=== PATIENT | female | born 2000 | race Caucasian/White ===

== ENCOUNTER → 2023-08-21 | Outpatient (CLI) | payer SELFPAY ==
[2023-08-21 13:38] LABS: Absolute Lymphocyte Count 1.84 X10^3/uL (0.83-4.51); Absolute Neutrophil Count 5.4 X10^3/uL (2.0-7.7); Basophil# 0.03 X10^3/uL; Basophil% 0.4 % (0-1); Eosinophils% 2.5 % (0-5); Hematocrit 35.2 % (37-47); Hemoglobin 11.9 g/dL (12.0-15.0); Lymphocyte # 1.84 X10^3/ul (0.83-4.51); Lymphocyte % 23.3 % (19-41); Mean Corp Hgb Conc 33.8 g/dL (32-36); Mean Corpuscular Hgb 29.2 pg (27.0-32.0); Mean Corpuscular Volume 86.5 fL (81-99); Monocyte# 0.43 X10^3/uL; Monocyte% 5.4 % (0-10); NRBC Flagged by Analyzer 0 % (0-5); Neutrophil # 5.37 X10^3/uL (2.7-7.7); Neutrophil % 67.9 % (47-70); Platelet Count 226 K/mm3 (150-450); RBC Distribution Width CV 14.7 % (11.6-14.6); RBC Distribution Width SD 46.5 fl (35.1-43.9); Red Blood Count 4.07 M/mm3 (4.2-5.4); White Blood Count 7.9 K/mm3 (4.4-11.0)
[2023-08-21 14:42] LABS: HIV - WCH Non-Reactive (Nonreactive); Hepatitis B Surface Antigen Non-Reactive (Nonreactive); Hepatitis C Antibody Non-Reactive (Nonreactive); Rubella IgG Reactive (Nonreactive); Syphilis Antibodies Non-reactive
[2023-08-25 05:13] LABS: Chlamydia By Nucleic Acid AMP Negative (Negative); Gonococcus By Nucleic Acid AMP Negative (Negative)
[2023-08-28 16:52] LABS: HPV Reflexed? NOT INDICATED
== END | disposition home or self-care (01) ==
PROVIDERS: Referring Provider Obstetrics & Gynecology; Visit Provider Obstetrics & Gynecology
DX: O09.90 Supervision of high risk pregnancy, unspecified, unspecified trimester (principal); Z3A.00 Weeks of gestation of pregnancy not specified
CPT/HCPCS: 36415; 85025; 86703; 86762; 86780; 86803; 86850; 86900; 86901; 87086; 87088; 87340; 87491; 87591; 88175; G0145

== ENCOUNTER → 2023-10-13 | Outpatient (CLI) | payer SELFPAY ==
--- NOTE | 2023-10-13 14:59 | US_ITS ---
INDICATION: anatomy EXAMINATION: Ultrasound US OB Complete W/ Detail single or first gestation TECHNIQUE: Transabdominal and endovaginal pelvic ultrasound was performed with grayscale color flow and M-mode Doppler. COMPARISON: None. Provided EGA: 05/20/2023 correlating with 20 weeks 6 days gestation estimated delivery date February 24, 2024. FINDINGS: Gravid uterus with unremarkable myometrium. Cervix 4.0 cm and closed on transabdominal exam. Placenta anterior, grade 0, without evidence of abruption or previa. 2 cm superficial placental tsai noted. Unremarkable nose and lips. Normal umbilical cord insertion and placental cord insertion. Female gender suggested. Variable presentation. Unremarkable skin line. Four-chamber heart. heart rate 132 bpm. Normal lateral ventricles and cerebellum. Normal cisterna magna. Filled stomach. Filled bladder. Three-vessel cord. 2 lower extremities, one being flexed. Kidneys present without tonia pelviectasis. 2 upper extremities present. Nasal bone present. Diaphragm appears grossly intact. Cervix 3.0 cm and closed on transvaginal exam. Biparietal diameter 4.7 cm 20 weeks 1 day Head circumference 19.3 cm 21 weeks 4 days Abdominal circumference 15.8 cm 20 weeks 6 days Femur length 3.8 cm 22 weeks 1 day Composite ultrasound age 21 weeks 0 days correlating with February 23, 2024 delivery date Normal head circumference abdominal circumference ratio Estimated weight 412 g +/- 62. This is 66 percentile compared to prior dating. Maternal ovaries are obscured by bowel gas. No free fluid or additional adnexal mass seen in the adnexa. US/OB Anatomy w/ Transvaginal IMPRESSION: Single live intrauterine with normal heart rate. Growth by biometry is concordant with provided dating. anatomy as described above without acute finding. Electronically Signed: Antoni Shell MD at 23:05 EDT ,
== END | disposition home or self-care (01) ==
LOC: US 14:58
PROVIDERS: Referring Provider Obstetrics & Gynecology; Visit Provider Obstetrics & Gynecology
DX: O09.90 Supervision of high risk pregnancy, unspecified, unspecified trimester (principal); Z3A.00 Weeks of gestation of pregnancy not specified
CPT/HCPCS: 76805; 76817

== ENCOUNTER → 2023-12-01 | Outpatient (CLI) | payer SELFPAY ==
[2023-12-01 08:35] LABS: Absolute Lymphocyte Count 1.41 X10^3/uL (0.83-4.51); Absolute Neutrophil Count 6.1 X10^3/uL (2.0-7.7); Basophil# 0.04 X10^3/uL; Basophil% 0.5 % (0-1); Eosinophil# 0.19 X10^3/uL; Eosinophils% 2.3 % (0-5); Hematocrit 31.1 % (37-47); Hemoglobin 10.3 g/dL (12.0-15.0); Lymphocyte # 1.41 X10^3/ul (0.83-4.51); Lymphocyte % 17.2 % (19-41); Mean Corp Hgb Conc 33.1 g/dL (32-36); Mean Corpuscular Hgb 30.3 pg (27.0-32.0); Mean Corpuscular Volume 91.5 fL (81-99); Mean Platelet Vol. 10.7 fl (6.2-12.0); Monocyte# 0.38 X10^3/uL; Monocyte% 4.6 % (0-10); NRBC Flagged by Analyzer 0 % (0-5); Neutrophil # 6.14 X10^3/uL (2.7-7.7); Neutrophil % 74.7 % (47-70); Platelet Count 166 K/mm3 (150-450); RBC Distribution Width CV 14.5 % (11.6-14.6); RBC Distribution Width SD 48.7 fl (35.1-43.9); White Blood Count 8.2 K/mm3 (4.4-11.0)
[2023-12-01 09:02] LABS: Glucose Challenge Gest 1H 50g 89 mg/dL (70-140)
[2023-12-01 09:57] LABS: HIV - WCH Non-Reactive (Nonreactive); Syphilis Antibodies Non-reactive
== END | disposition home or self-care (01) ==
LOC: PAVLAB 07:37
PROVIDERS: Referring Provider Nurse Practitioner Women's Health; Visit Provider Nurse Practitioner Women's Health
DX: Z34.92 Encounter for supervision of normal pregnancy, unspecified, second trimester (principal)
CPT/HCPCS: 36415; 82950; 85025; 86703; 86780

== ENCOUNTER → 2024-02-03 | Outpatient (CLI) | payer SELFPAY | END | disposition home or self-care (01) | PROVIDERS: Referring Provider Advanced Practice Midwife; Visit Provider Advanced Practice Midwife | DX: Z34.93 Encounter for supervision of normal pregnancy, unspecified, third trimester (principal); Z3A.37 37 weeks gestation of pregnancy | CPT/HCPCS: 87077; 87081; 87186 ==

== ENCOUNTER 2024-02-25 12:44 | Inpatient (IN) | payer SELFPAY ==
[2024-02-25] VITALS (19 sets, daily range): BP systolic 95–128; BP diastolic 51–70; PULSE 68–100; RESP 16; TEMP 36.2–36.7; O2SAT 90–100; BMI 38.1
[2024-02-25 12:06] LABS: ROM Internal Control Test YES-OK TO RESULT pt. (Internal QC)
[2024-02-25 12:07] LABS: ROM Patient Test POSITIVE (Negative)
[2024-02-25] MEDS: Lactated Ringers 1,000 ML 50 ML IV (13:15)
[2024-02-25 13:30] LABS: Absolute Lymphocyte Count 1.85 X10^3/uL (0.83-4.51); Absolute Neutrophil Count 7.8 X10^3/uL (2.0-7.7); Basophil# 0.04 X10^3/uL; Basophil% 0.4 % (0-1); Hematocrit 36.7 % (37-47); Hemoglobin 12.4 g/dL (12.0-15.0); Lymphocyte # 1.85 X10^3/ul (0.83-4.51); Lymphocyte % 17.8 % (19-41); Mean Corp Hgb Conc 33.8 g/dL (32-36); Mean Corpuscular Volume 88.9 fL (81-99); Mean Platelet Vol. 11.2 fl (6.2-12.0); Monocyte# 0.58 X10^3/uL; Monocyte% 5.6 % (0-10); NRBC Flagged by Analyzer 0 % (0-5); Neutrophil # 7.76 X10^3/uL (2.7-7.7); Neutrophil % 74.7 % (47-70); Platelet Count 178 K/mm3 (150-450); RBC Distribution Width SD 48.9 fl (35.1-43.9); Red Blood Count 4.13 M/mm3 (4.2-5.4); White Blood Count 10.4 K/mm3 (4.4-11.0)
[2024-02-25 14:11] LABS: Syphilis Antibodies Non-reactive
[2024-02-25] MEDS: Penicillin G Pot 5,000,000 UNITS in 0.9% Normal Saline (100mL MB+) 100 ML 150 UNITS IV (14:38)
[2024-02-25] MEDS: Penicillin G 3,000,000 Units 50 ML 100 UNITS IV ×2 (18:51→22:31)
--- NOTE | 2024-02-25 19:15 | HP.PCM.OB_ITS ---
HPI - General General Date of Admission: 02/25/24 HPI Narrative DOLORES AUSTIN, is a 23 F who presents with SROM clear fluid, early labor. 1 cm thick posterior. Maternal Data Information TIN Calculator Estimated Delivery Date Method Current WG Current Estimate 02/24/24 LMP (Certain) 40w 1d PFSH PFSH Medical History (Updated 02/25/24 @ 19:[address] Kayla Roland MD) Asthma Home Medications ?Medication ?Instructions ?Recorded ?Last Taken ?Type multivitamin no.47-iron fum 27 cap PO 08/11/23 Unknown History mg-folate no.1 1 mg-dha 300 mg capsule (PNV-DHA) Allergy/AdvReac Type Severity Reaction Status Date / Time No Known Allergies Allergy Verified 02/25/24 11:37 Family History Sister Family history of recurrent miscarriage Sister Family history of recurrent miscarriage Sister Family history of recurrent miscarriage Surgical History (Updated 02/25/24 @ 13:11 by iDanna Huitron) Previous section Social History adopted: No household members: spouse and children number of children: 1 current occupational status: unemployed current occupation: [employer] pets and animals: No history of recent travel: Yes ([place] in July) out of state: Yes out of country: No sexually active: Yes Smoking Status: Never smoker alcohol intake: never substance use type: does not use well-balanced diet: about half the time caffeine: Yes Type: coffee Number of servings: 1 eating out: rarely or never during the past year weight has: increased > 10 lbs what type of physical activity do you participate in: none roselyn/nondenominational: Elijah seatbelt use: sometimes do you feel safe at home: Yes additional social history: [employer] History 2 Elective abortions Hx Para 1 Spontaneous abortions Hx # Term Pregnancies Ectopic pregnancies Hx # Pregnancies Multiple births # of living children 1 Past Pregnancies Del. Date Name GA/Weeks Outcome Route Bth Weight Infant Gen Labor Lgth Anes thes ia Del Locatn Provider FOB 06/03/21 Edouard 41 live - full term 8#0oz Male 7 H R spinal Pomerene Tal Delivery Date: 06/03/21 Last Updated by: Aylin Waller emergency c section decl Visit Details Expected Delivery Route/Plan tolac patient counseled regarding risks/benefits of trial of labor versus repeat . ACOG/uptodate education given to patient. 60% likelihood of success per calculator TOLAC consent form signed: [] pt got to 3-4 cm dilated, heart rate dropped and had an emergency section.- records from [place] shows heart tones down to 60's-40's recurrently. was a low transverse section. Plans Covid status: [] Flu vaccine: [] Tdap vaccine: declines Rhogam: [] LARC form signed: done Problem list reviewed and updated with the most current plan of care details and appropriate orders placed. Relevant counseling for the gestational age provided. Continue routine care and follow up unless otherwise noted in visit notes/problem list details OB Flowsheet Initial Weight: Not Recorded Date -?-?-?-?-?-?-?-?-?-?-?-?- EGA Weight BP Urine Prot -?-?-?-?-?-?-?-?-?-?-?-?- Glucose FHR FuHt Pres Dilation -?-?-?-?-?-?-?-?-?-?-?-?- Effaced St Visit Note 08/21/23 -?-?-?-?-?-?-?-?-?-?-?-?- 13w 2d 204 lb 98/62 -?-?-?-?-?-?-?-?-?-?-?-?- 160 -?-?-?-?-?-?-?-?-?-?-?-?- SM- CRL cons wit h LMP had US at 9 weeks at [facility] 09/18/23 -?-?-?-?-?-?-?-?-?-?-?-?- 17w 2d 207 lb 4 oz 97/64 Nega tive -?-?-?-?-?-?-?-?-?-?-?-?- Negative 140 -?-?-?-?-?-?-?-?-?-?-?-?- JV- lots of ques tions about . see notes above in section. 11/05/23 -?-?-?-?-?-?-?-?-?-?-?-?- 24w 1d 213 lb 2 oz 108/66 Nega tive -?-?-?-?-?-?-?-?-?-?-?-?- Negative 137 24 -?-?-?-?-?-?-?-?-?-?-?-?- MH-No VB, LOF. G ood FM. Some discomfort left side old CS scar-probable adhesion/reassured. 12/01/23 -?-?-?-?-?-?-?-?-?-?--?-?- 27w 6d 217 lb 6 oz 86/52 Nega tive -?-?-?-?-?-?-?-?-?-?-?-?- Negative 134 28 -?-?-?-?-?-?-?-?-?-?-?-?- kw-no vb/lof/ctx . good fm. Declines LARC and TDAP. 12/16/23 -?-?-?-?-?-?-?-?-?-?-?-?- 30w 0d 220 lb 8 oz 94/62 Nega tive -?-?-?-?-?-?-?-?-?-?-?-?- Negative 130 30 -?-?-?-?-?-?-?-?-?-?-?-?- KW- no vb/lof/ct x. good fm. no concerns 01/04/24 -?-?-?-?-?-?-?-?-?-?-?-?- 32w 5d 219 lb 6 oz 100/65 Nega tive -?-?-?-?-?-?-?-?-?-?-?--?- Negative 125 33 -?-?-?-?-?-?-?-?-?-?-?-?- KW- no vb/lof/re g ctx. good fm. no concerns today 01/20/24 -?-?-?-?-?-?-?-?-?-?-?-?- 35w 0d 220 lb 102/66 Negative -?-?-?-?-?-?-?-?-?-?-?-?- Negative 125 36 -?-?-?-?-?-?-?-?-?-?-?-?- KW- no vb/lof/ct x. good fm. KW- no vb/lof/ctx. good fm. Will schedule 41 week C/S if no active labor by then. TOLAC form signed. GBS next visit 02/03/24 -?-?-?-?-?-?-?-?-?-?-?-?- 37w 0d 222 lb 100/66 Negative -?-?-?-?-?-?-?-?-?-?-?-?- Negative 131 38 1 -?-?-?-?-?-?-?-?-?-?-?-?- -3 KW- no v b/lof/ctx. good fm. GBS today. encouraged fede appts until delivery 02/11/24 -?-?-?-?-?-?-?-?-?-?-?-?- 38w 1d 223 lb 4 oz 95/63 Nega tive -?-?-?-?-?-?-?-?-?-?-?-?- Negative 132 38 Cephalic 1 -?-?-?-?-?-?-?-?-?-?-?-?- 0 -3 JV- no lof , vaginal bleeding, or dec fm. labor precautions given. patient has a plan to go to [facility] if has bleeding or any kind of emergency as she passes by that hospital to get to us. She live 1.5 hrs away 02/16/24 -?-?-?-?-?-?-?-?-?-?-?-?- 38w 6d 223 lb 6 oz 102/66 Nega tive -?-?-?-?-?-?-?-?-?-?-?-?- Negative 140 38 Cephalic 0 -?-?-?-?-?-?-?-?-?-?-?-?- JV- internal os closed today. head floating. we agreed no IOL if no labor by 41 weeks ,rpt section planned. 02/23/24 -?-?-?-?-?-?-?-?-?-?--?-?- 39w 6d 223 lb 104/69 Negative -?-?-?-?-?-?-?-?-?-?-?-?- Negative 150 40 Cephalic 0 .5 -?-?-?-?-?-?-?-?-?-?-?-?- 20 -1 SM- no vb lof good fm no regular ctx head much lower but cervix posterior, discussed rechecking next thursday to reevaluate NST FHR Rate Baby A Baseline: 130 Variability:: Moderate Accelerations:: 15 x 15 Decelerations:: None NST Reactive:: Yes FHR Category:: Category I Uterine Activity:: irregular ROS Constitutional Constitutional: Reports systems reviewed and no addt'l complaints, except as documented Eyes Eyes: Denies change in vision ENT HEENT: Reports systems reviewed and no addt'l complaints, except as documented; Denies headache(s) Cardiovascular Cardiovascular: Reports systems reviewed and no addt'l complaints, except as documented; Denies chest pain or dyspnea Respiratory/Chest Respiratory/Chest: Reports systems reviewed and no addt'l complaints, except as documented Gastrointestinal Gastrointestinal: Reports systems reviewed and no addt'l complaints, except as documented; Denies abdominal pain Genitourinary Genitourinary: Reports systems reviewed and no addt'l complaints, except as do cumented, contractions Details: present (irregular) and movement Details: present; Denies dysuria or genital lesions Musculoskeletal Musculoskeletal: Reports systems reviewed and no addt'l complaints, except as documented Neurologic Neurologic: Reports systems reviewed and no addt'l complaints, except as documented Endocrine Endocrinology: Reports systems reviewed and no addt'l complaints, except as documented Vital Signs Vital Signs Vital Signs: 02/25/24 11:34 02/25/24 11:34 02/25/24 11:34 Temperature Temperature Source Temporal Pulse Rate 76 Respiratory Rate Blood Pressure 95/51 L BP Systolic 95 BP Diastolic 51 02/25/24 11:34 02/25/24 13:42 02/25/24 13:42 Temperature 97.7 F L Temperature Source Temporal Pulse Rate Respiratory Rate 16 Blood Pressure BP Systolic BP Diastolic 02/25/24 13:42 02/25/24 13:49 02/25/24 13:49 Temperature 97.9 F Temperature Source Pulse Rate 82 Respiratory Rate Blood Pressure 108/55 L BP Systolic 108 BP Diastolic 55 02/25/24 15:39 02/25/24 15:39 02/25/24 15:40 Temperature Temperature Source Temporal Pulse Rate 68 Respiratory Rate Blood Pressure 116/57 L BP Systolic 116 BP Diastolic 57 02/25/24 15:40 02/25/24 15:40 02/25/24 16:30 Temperature 97.3 F L Temperature Source Temporal Pulse Rate Respiratory Rate 16 Blood Pressure BP Systolic BP Diastolic 02/25/24 16:30 02/25/24 16:30 02/25/24 16:31 Temperature 97.5 F L Temperature Source Pulse Rate Respiratory Rate 16 Blood Pressure 115/70 BP Systolic 115 BP Diastolic 70 02/25/24 16:31 02/25/24 17:43 02/25/24 17:43 Temperature Temperature Source Pulse Rate 71 88 Respiratory Rate Blood Pressure 107/66 BP Systolic 107 BP Diastolic 66 02/25/24 17:43 02/25/24 17:43 02/25/24 17:43 Temperature 97.8 F Temperature Source Temporal Pulse Rate Respiratory Rate 16 Blood Pressure BP Systolic BP Diastolic 02/25/24 18:41 02/25/24 18:41 02/25/24 18:41 Temperature 97.8 F Temperature Source Temporal Pulse Rate Respiratory Rate 16 Blood Pressure BP Systolic BP Diastolic 02/25/24 18:42 02/25/24 18:42 Temperature Temperature Source Pulse Rate 90 Respiratory Rate Blood Pressure 106/60 BP Systolic 106 BP Diastolic 60 Weight Weight: 222 lb 6.4 oz Body Mass Index (BMI) 38.1 Physical Exam Const alert, oriented x3, no apparent distress and healthy appearing HEENT normocephalic and moist oral mucous membranes Head and Scalp: atraumatic Neck full ROM, no lymphadenopathy, supple and thyroid normal General: trachea midline Lymph Lymphatic: no lymphadenopathy noted Chest inspection of chest normal Resp normal respiratory effort Cardio regular rate GI normal to inspection, nondistended, normoactive bowel sounds, soft to palpation and non-tender Inspection: gravid external exam normal Manual OB Exam: estimated gestational size appropriate, presentation cephalic, dilated, effaced and station Extremity normal to inspection General Extremity: Negative for edema Skin no rashes or lesions noted Neuro no focal motor deficits and deep tendon reflexes 2+ bilaterally Motor Exam: strength 5/5 throughout and clonus absent Psych mental status grossly normal Labs Labs Labs: Blood Type A POSITIVE Antibody Screen POSITIVE Hct 36.7 % (37-47) L Hgb 12.4 g/dL (12.0-15.0) Obstetrics Ultrasound Syphilis Total Ab Non-reactive Rubella IgG Antibody Reactive (Nonreactive) Hep Bs Antigen Non-Reactive (Nonreactive) Hepatitis C Antibody Non-Reactive (Nonreactive) Chlamydia DNA (SASHA) Negative (Negative) N.gonorrhoeae DNA (SASHA) Negative (Negative) HIV 1&2 Antibody Non-Reactive (Nonreactive) Glucose 1 Hr 50 gm 89 mg/dL (70-140) Assessment & Plan (1) SROM (spontaneous rupture of membranes): (2) Positive GBS test: COMMENT: treat in labor (3) Anemia affecting : (4) Obesity affecting : QUALIFIERS: Trimester: second trimester Obesity type affecting : unspecified obesity Qualified Code(s): O99.212 - Obesity complicating , second trimester COMMENT: BMI 35 encouraged healthy weight gain (5) Hx of section: COMMENT: emergency, decels, plan TOLAC RLTCS scheduled for 03/02 @ 7:15 with JV if no TOLAC (6) Supervision of high-risk : QUALIFIERS: Trimester: second trimester Qualified Code(s): O09.92 - Supervision of high risk , unspecified, second trimester COMMENT: PRR , TIN 02/24/24, PC Edouard, Tal (7) : QUALIFIERS: Weeks of gestation: 39 weeks Qualified Code(s): Z3A.39 - 39 weeks gestation of COMMENT: normal anatomy, declined genetic & carrier testing (8) Asthma: COMMENT: exercise & environmental PLAN: Plan Patient presents srom start pitocin if no change. Pain management: open to epidural if needed. GBS positive plan IV PCN. Management of any complications: none I have reviewed the [facility] and made any clinically relevant updates.
[2024-02-25] MEDS: Oxytocin 15 Units/NS 250ml 15 UNITS/250 ML IV.SOLN 2 UNITS IV (19:58)
[2024-02-25] MEDS: Ondansetron 4 MG/2 ML Vial IV (21:09)
[2024-02-25] MEDS: Lactated Ringers 1,000 ML 999 ML IV (23:44)
[2024-02-26] VITALS (38 sets, daily range): BP systolic 86–139; BP diastolic 49–78; PULSE 70–88; RESP 14–18; TEMP 36.5–36.9; O2SAT 88–98
[2024-02-26] MEDS: fentaNYL-bupivacaine (epidural) 100 ML BAG EPIDURAL (00:05)
--- NOTE | 2024-02-26 01:52 | OB.TRI.PN_ITS ---
Progress Notes Progress Note: comfortable with epidural current tracing: FHT: 130 Moderate variability reactive no decelerations category I tracing Preemption: q 2 Contractions reviewed tracing abnormalities since last note: no signficiant A/P: now / made good cervical change. exp managment with pit at 8 Laboratory Studies: Laboratory Tests 02/25/24 02/25/24 Range/Units 13:15 11:40 WBC 10.4 (4.4-11.0) K/mm3 RBC 4.13 L (4.2-5.4) M/mm3 Hgb 12.4 (12.0-15.0) g/dL Hct 36.7 L (37-47) % MCV 88.9 (81-99) fL MCH 30.0 (27.0-32.0) pg MCHC 33.8 (32-36) g/dL RDW Std Deviation 48.9 H (35.1-43.9) fl RDW Coeff of Loren 15.0 H (11.6-14.6) % Plt Count 178 (150-450) K/mm3 MPV 11.2 (6.2-12.0) fl Immature Gran % (Auto) 0.500 (0.0-0.9) % Neut % (Auto) 74.7 H (47-70) % Lymph % (Auto) 17.8 L (19-41) % [place] % (Auto) 5.6 (0-10) % Eos % (Auto) 1.0 (0-5) % Baso % (Auto) 0.4 (0-1) % Absolute Neuts (auto) 7.8 H (2.0-7.7) X10^3/uL Absolute Lymphs (auto) 1.85 (0.83-4.51) X10^3/uL Nucleated RBC % 0 (0-5) % Vag Amniotic Fld Detect POSITIVE H (Negative) Syphilis Total Ab Non-reactive Blood Type A POSITIVE Antibody Screen POSITIVE Antibody Identification ANTI-Jka Antigen Identification Jka ANTIGEN - NEGATIVE Crossmatch See Detail
[2024-02-26] MEDS: Penicillin G 3,000,000 Units 50 ML 100 UNITS IV (02:33)
--- NOTE | 2024-02-26 03:14 | OP.PCM_ITS ---
Assessment & Plan (1) SROM (spontaneous rupture of membranes): (2) Positive GBS test: COMMENT: treat in labor (3) Anemia affecting : (4) Obesity affecting : QUALIFIERS: Trimester: second trimester Obesity type affecting : unspecified obesity Qualified Code(s): O99.212 - Obesity complicating , second trimester COMMENT: BMI 35 encouraged healthy weight gain (5) Hx of section: COMMENT: emergency, decels, plan TOLAC RLTCS scheduled for 03/02 @ 7:15 with JV if no TOLAC (6) Supervision of high-risk : QUALIFIERS: Trimester: second trimester Qualified Code(s): O09.92 - Supervision of high risk , unspecified, second trimester COMMENT: PRR , TIN 02/24/24, PC Edouard, Tal (7) : QUALIFIERS: Weeks of gestation: 39 weeks Qualified Code(s): Z3A.39 - 39 weeks gestation of COMMENT: normal anatomy, declined genetic & carrier testing (8) Asthma: COMMENT: exercise & environmental (9) Vaginal after : COMMENT: SM edelmira 40 pit aol srom Maternal Data Information TIN Calculator Estimated Delivery Date Method Current WG Current Estimate 02/24/24 LMP (Certain) 40w 2d Vaginal Delivery Operative Information Pre-Operative Diagnosis: see a/p diagnoses Post-Operative Diagnosis: same Surgery / Procedure Performed: Type of Anesthesia: Epidural Special Medications: none Estimated Blood Loss: 200 Fluids Replaced: crystalloid Findings Description of Procedure: Patient began pushing and delivered the head in the kathleen presentation. The head was delivered atraumatically and a loose nuchal cord ?1 was identified and the infant delivered through without complication. The anterior and posterior shoulders delivered without complication followed by the rest of the and the was placed on the maternal abdomen. Delayed cord clamping was employed for approximately 60 seconds. Cord was clamped and cut and gentle traction was applied to the cord and the placenta delivered spontaneously immediately following it was noted to be intact with three-vessel cord. The p erineum and vagina were inspected and noted to have a second degree perineal laceration which was repaired in the usual fashion with 3-0 vicryl rapide. . EBL was 200 cc. Patient and infant tolerated delivery well. Amniotic Fluid Description: Clear Placental Delivery Description: Spontaneous Placenta Disposition: [facility] Cord Vessel Description: 3 Vessels Cord Entanglement: None Delayed Cord Clamping: Yes Post Vaginal Delivery Medications Given After Delivery: IV Pitocin Episiotomy Description: None Complication Complications: None Multi Select Codes Urinary/Genital Urinary/Genital CPT Codes: 03114 delivery global pkg
--- NOTE | 2024-02-26 03:15 | DCINST_ITS ---
Discharge Instructions Diet Discharge Diet: No restrictions Activity Discharge Activity: Return to Normal Activity, May Not Drive (while taking narcotic pain medications.) and May Shower May resume sexual activity in: 4-6 weeks Dressing / Incision Call your doctor if your incision/area has: Continuous Slow Oozing, Sudden Increased Bleeding, Increased Pain/ Swelling, Increased Redness and Foul Smelling Discharge Follow Up Care Please Follow Up With: Kayla Roland MD When: Call [phone] to make an appointment with your doctor in 6 weeks. If you had elevated blood pressure or 4th degree laceration, you will need to be seen in 2 weeks. Test Results: Test results from this visit will be discussed in further detail at your follow- up appointment, if applicable. Discharge Plan Admission Admit Date/Time: 02/25/24 12:44 Attending Provider: Kayla Roland Primary Care Provider: Christa Walden NP Discharge Orders/Prescriptions Prescriptions: No Action PNV-DHA 27 mg iron-1 mg -300 mg capsule PO Referrals / Follow Up: Christa Walden NP, [employer] [Primary Care Provider] - Disposition Disposition (needs filled in before D/C Order can be placed): Home, Self Care
[2024-02-26] MEDS: Oxytocin 15 Units/NS 250ml 15 UNITS/250 ML IV.SOLN 83 UNITS IV (03:25)
[2024-02-26] MEDS: Acetaminophen 500 MG Tablet 1000 MG PO ×3 (07:40→20:29)
[2024-02-26] MEDS: Naproxen 500 MG Tablet PO (12:16)
[2024-02-27] VITALS: BP 115/72; PULSE 78; RESP 16; TEMP 36.5; O2SAT 98
[2024-02-27 04:03] VITALS: BP 97/61; PULSE 69; RESP 16; TEMP 36.7; O2SAT 97
--- NOTE | 2024-02-27 06:15 | PCM.PN.OB ---
Subjective Subjective Patient doing well without complaints. Tolerating PO. Ambulating and voiding without difficulty. feeding well. Denies chest pain, shortness of breath, calf pain/swelling, fevers, chills, lightheadedness. Objective Data Objective Data Vital Signs: Vital Signs Temp Pulse Resp BP Pulse Ox O2 Del Method 98.1 F 69 16 97/61 97 Room Air 02/27/24 04:03 02/27/24 04:03 02/27/24 04:03 02/27/24 04:03 02/27/24 04:03 02/27/24 04:03 Oxygen Delivery Method Room Air Weight: 222 lb 6.4 oz Body Mass Index (BMI) 38.1 Intake & Output: Intake and Output for Last 24 Hours 02/25/24 02/26/24 02/27/24 23:59 23:59 23:59 Intake Total 1215.76 / 1215.76 1408.49 / 1408.49 Output Total 600 / 600 Balance 1215.76 / 1215.76 808.49 / 808.49 Lab / Micro Data 02/25/24 13:15 ROS Constitutional Constitutional: Reports systems reviewed and no addt'l complaints, except as documented Cardiovascular Cardiovascular: Reports systems reviewed and no addt'l complaints, except as documented Respiratory/Chest Respiratory/Chest: Reports systems reviewed and no addt'l complaints, except as documented Gastrointestinal Gastrointestinal: Reports systems reviewed and no addt'l complaints, except as documented Physical Exam Const alert, oriented x3 and no apparent distress HEENT Head and Scalp: atraumatic Resp normal respiratory effort GI soft to palpation and non-tender Bimanual Exam - Vag & Uterus: uterus non-tender Uterus Palpation: uterus fundus firm (below Umbilicus) Assessment & Plan (1) Vaginal after : COMMENT: SM edelmira 40 pit aol srom PLAN: Plan s/p PPD # 1 1. routine post delivery care 2. breast feeding- support given 3. rh positive 4. rubella immune
[2024-02-27 08:01] VITALS: BP 111/73; PULSE 71; RESP 16; TEMP 36.6; O2SAT 98
[2024-02-27] MEDS: Acetaminophen 500 MG Tablet 1000 MG PO (08:18)
[2024-02-27 11:44] VITALS: BP 111/65; PULSE 79; RESP 16; TEMP 36.5; O2SAT 97
--- NOTE | 2024-03-03 11:18 | NURSING ---
edited delivery record to reflect successful , to pull data to Log. Kristy Olivera RN
== END 2024-02-27 12:40 | disposition home or self-care (01) | DRG 806 ==
PROVIDERS: Admitting Provider Obstetrics & Gynecology; Referring Provider Obstetrics & Gynecology; Visit Provider Obstetrics & Gynecology
DX: O42.92 Full-term premature rupture of membranes, unspecified as to length of time between rupture and onset of labor (principal); Z37.0 Single live birth; O98.82 Other maternal infectious and parasitic diseases complicating childbirth; J45.909 Unspecified asthma, uncomplicated; O99.214 Obesity complicating childbirth; O70.1 Second degree perineal laceration during delivery; O69.81X0 Labor and delivery complicated by cord around neck, without compression, not applicable or unspecified; O34.211 Maternal care for low transverse scar from previous cesarean delivery; O99.02 Anemia complicating childbirth; B95.1 Streptococcus, group B, as the cause of diseases classified elsewhere; O99.52 Diseases of the respiratory system complicating childbirth; Z3A.40 40 weeks gestation of pregnancy
CPT/HCPCS: 59025; 59050; 84112; 85025; 86780; 86850; 86870; 86900; 86901; 86902; 86905; 86920; 86922; 99221; J7120; G0378; J2405